=== PATIENT | female | born 1980 ===

== ENCOUNTER 2016-05-30 10:05 | Emergency (ER) | payer OTHER ==
[2016-05-30 10:23] VITALS: BP 134/90; PULSE 97; RESP 19; TEMP 98.2; O2SAT 98
--- NOTE | 2016-05-30 11:22 | ED PDOC ---
HPI: General Adult Time Seen by Provider: 05/30/16 11:19 Chief Complaint (Nursing): Medical Clearance Chief Complaint (Provider): packing removal History Per: Patient History/Exam Limitations: no limitations Additional Complaint(s): 36yo F i ED for eval of packing removal from I&D to right buttock [id number] ago. Rx abx and taking and Rx. denies fever chills nasuea or vomiting denies drainage Past Medical History Reviewed: Historical Data, Nursing Documentation, Vital Signs Vital Signs: Last Vital Signs Temp 98.2 F 05/30/16 10:22 Pulse 97 H 05/30/16 10:22 Resp 19 05/30/16 10:22 BP 134/90 05/30/16 10:22 Pulse Ox 98 05/30/16 11:10 - Medical History PMH: Gall Bladder Disease Denies: Chronic Kidney Disease - Surgical History Surgical History: Cholecystectomy - Family History Family History: States: No Known Family Hx - Immunization History Hx Tetanus Toxoid Vaccination: No Hx Influenza Vaccination: Yes Hx Pneumococcal Vaccination: No - Home Medications Home Medications: Ambulatory Orders Medication Instructions Recorded Cephalexin [cephalexin] 500 mg PO BID #19 cap 05/26/16 Ibuprofen [Motrin] 600 mg PO TID #21 tab 05/26/16 Sulfamethoxazole/Trimethoprim 1 tab PO BID #19 tab 05/26/16 [Bactrim DS 800 mg-160 mg] Ibuprofen [Motrin] 600 mg PO Q6 #20 tab 05/28/16 oxyCODONE/Acetaminophen [Percocet 1 ea PO Q6 PRN #5 tab 05/28/16 5/325 mg Tab] - Allergies Allergies/Adverse Reactions: Allergies Allergy/AdvReac Type Severity Reaction Status Date / Time No Known Allergies Allergy Verified 05/30/16 11:09 Review of Systems ROS Statement: Except As Marked, All Systems Reviewed And Found Negative Skin: Positive for: Lesions Physical Exam - Reviewed Nursing Documentation Reviewed: Yes Vital Signs Reviewed: Yes - Physical Exam Appears: Positive for: Well, Non-toxic, No Acute Distress Head Exam: Positive for: ATRAUMATIC, NORMAL INSPECTION, NORMOCEPHALIC Skin: Positive for: Normal Color, Warm, Rash (left buttock-packing removeed, wound well appeaing no drainage) Cardiovascular/Chest: Positive for: Regular Rate, Rhythm Respiratory: Positive for: CNT, Normal Breath Sounds Neurologic/Psych: Positive for: Alert, Oriented - ECG O2 Sat by Pulse Oximetry: 98 Medical Decision Making Medical Decision Making: packing removed. pt advsed to do warm soak. no further ER f.u needed Disposition - Clinical Impression Clinical Impression: Wound check, abscess - Patient ED Disposition Is Patient to be Admitted: No Counseled Patient/Family Regarding: Diagnosis, Need For Followup - Disposition Disposition: Routine/Home Disposition Time: 11:23 Condition: STABLE Instructions: Chronic Wound Care (ED), Sitz Bath (GEN)
== END 2016-05-30 11:41 | disposition home or self-care (01) ==
LOC: H.ER 10:05
DX: Z51.89 Encounter for other specified aftercare (principal)